=== PATIENT | male | born 1955 | race Caucasian/White ===

== ENCOUNTER 2016-09-27 00:11 | Emergency (ER) | payer OTHER | END 2016-09-27 08:47 | disposition home or self-care (01) | LOC: SED 00:11 | DX: F10.129 Alcohol abuse with intoxication, unspecified (principal); Y90.9 Presence of alcohol in blood, level not specified; F17.200 Nicotine dependence, unspecified, uncomplicated | CPT/HCPCS: 36415; 96365; 99284; J3411 ==

== ENCOUNTER 2016-11-25 17:01 | Emergency (ER) | payer OTHER ==
[~2016-11-25] VITALS: Ht 172.7 cm; Wt 81.6 kg
--- NOTE | ~2016-11-25 | CR172 ---
[facility] A Service of [facility] & [facility] RADIOLOGY TEXT RESULTS PATIENT: GARRY ROWE LOCATION: [place] : [birth year] UNIT #: [id number] AGE: [address]: Aliza Spence SEX: M ORDER DR: [id number] [facility] [address] [place], [place] [address] [id number] E MR#: [id number] Acc #: [id number] NAME: GARRY ROWE : 1955 SEX: M STUDY DATE/TIME: 11/25/2016 17:51 UNIT: [facility] ROOM: STUDY DESCRIPTION: CR Knee 3 Views Lt Attending Physician: Aliza Spence P.A.-C. Ordering Physician: Aliza Spence P.A.-C. Primary Care Physician: No Primary Care Physician MEDICAL IMAGING REPORT This report is preliminary unless electronic signature is present EXAM Left knee 3 views HISTORY Knee pain and swelling for 3 days. No injury. FINDINGS 3 views of the left knee demonstrate normal bone alignment. No fracture, joint space narrowing or effusion. [place] arterial calcifications. IMPRESSION No acute findings. Dictated by... Javier Henson M.D. THIS IS AN ELECTRONICALLY VERIFIED REPORT Javier Henson M.D. at 11/26/2016 11:17 PM DFPrabhu/leilani TD: 11/26/2016 08:44 JOB #: [id number] CC: No Primary Care Physician MEDICAL IMAGING REPORT Page 1 of 1 COPY
== END 2016-11-25 18:42 | disposition home or self-care (01) ==
LOC: CFTX 17:01 → CED 17:01 → CFTX 18:19
DX: S83.92XA Sprain of unspecified site of left knee, initial encounter (principal); I10 Essential (primary) hypertension; I25.2 Old myocardial infarction; F17.210 Nicotine dependence, cigarettes, uncomplicated; X58.XXXA Exposure to other specified factors, initial encounter; Y92.009 Unspecified place in unspecified non-institutional (private) residence as the place of occurrence of the external cause
CPT/HCPCS: 29505; 73562; 99283

== ENCOUNTER 2016-12-27 21:48 | Emergency (ER) | payer OTHER ==
[~2016-12-27] VITALS: Ht 172.7 cm; Wt 72.6 kg
--- NOTE | ~2016-12-27 | EKG ---
PATIENT: GARRY ROWE UNIT #: [id number] Ventricular Rate: 70 BPM Atrial Rate: 70 BPM P-R Interval: 170 ms QRS Duration: 148 ms Q-T Interval: 418 ms QTC Calculation(Bezet): 451 ms P [place]: -5 degrees Calculated R [place]: 66 degrees Calculated T [place]: 23 degrees Diagnosis Line: Normal sinus rhythm Diagnosis Line: Right bundle branch block Diagnosis Line: Abnormal ECG Diagnosis Line: No previous ECGs available Diagnosis Line: Confirmed by COREY LINARES MD ([id number]) on Diagnosis Line: 12/28/2016 11:37:29 AM INTERPRETING MD: VIJAY MAYERS
--- NOTE | ~2016-12-27 | CR72 ---
[facility] A Service of [facility] RADIOLOGY TEXT RESULTS PATIENT: GARRY ROWE LOCATION: [facility] : [birth year] UNIT #: [id number] AGE: [address]: Jw Marquez DO SEX: M ORDER DR: [id number] [facility] [address] [place], [place] [address] [id number] E MR#: [id number] Acc #: [id number] NAME: GARRY ROWE : 1955 SEX: M STUDY DATE/TIME: 12/27/2016 22:47 UNIT: [facility] ROOM: STUDY DESCRIPTION: CR Chest Single View Portable Attending Physician: Jw Marquez D.O. Ordering Physician: Jw Marquez D.O. Primary Care Physician: No Primary Care Physician MEDICAL IMAGING REPORT This report is preliminary unless electronic signature is present EXAM Portable chest, 12/27 at 22:47. INDICATIONS Chest pain for the last 4 days. FINDINGS AP portable chest is compared with 07/07/2016. Cardiac and mediastinal contours are normal. The lungs are clear. There is no pneumothorax. There is some atherosclerotic disease in the aorta. 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 IMPRESSION No active disease. Dictated by... Brandon Montero Jr., M.D. THIS IS AN ELECTRONICALLY VERIFIED REPORT Brandon Montero Jr., M.D. at 12/31/2016 7:12 AM DHRUV/sandy TD: 12/28/2016 09:21 JOB #: [id number] MEDICAL IMAGING REPORT Page 1 of 1 COPY
[2016-12-27 22:40] LABS: BASOPHIL% 0.7 % (0-2.5); EOSINOPHIL# 0.1 X10e3 (0-0.7); EOSINOPHIL% 3.1 % (0.0-7.0); HEMOGLOBIN 11.3 gm/dL (13.0-16.0); LYMPHOCYTE# 1.4 X10e3 (1.0-3.5); LYMPHOCYTE% 34.5 % (17.0-45.0); MEAN CELL VOLUME 86.1 FL (83-96); MEAN CORPUSCULAR HEMOGLOBIN 27.7 PG (28-34); MEAN CORPUSCULAR HGB CONC 32.2 g/dL (30-36); MEAN PLATELET VOLUME 8.2 FL (6.5-11.5); MONOCYTE# 0.5 X10e3 (0-1.0); MONOCYTE% 11.7 % (3.0-12.0); NEUTROPHIL# 2.1 X10e3 (1.5-7.1); PLATELET COUNT 171 X10e3 (140-420); RED BLOOD COUNT 4.07 X10e (3.90-5.60); RED CELL DISTRIBUTION WIDTH 18.4 % (11.0-15.5); WHITE BLOOD COUNT 4.2 X10e3 (4.0-10.5)
[2016-12-27 22:41] LABS: DIFF IND NO
[2016-12-27 22:50] LABS: POC - CKMB 20.4 ng/mL (0.0-7.9); POC - TROPONIN <0.05 ng/mL (<=0.05)
[2016-12-27 22:54] LABS: INR 1.1; PARTIAL THROMBOPLASTIN TIME 28.5 SECONDS (23.5-31.3); PROTHROMBIN TIME (PATIENT) 11.5 SECONDS (10.0-11.7)
[2016-12-27 23:05] LABS: ALBUMIN SERUM 3.7 g/dL (3.5-5.0); BILIRUBIN, DIRECT 0.2 mg/dL (0.0-0.2); BILIRUBIN,INDIRECT 0.5 mg/dL (0.0-0.9); BILIRUBIN,TOTAL 0.7 mg/dL (0.2-2.0); CALCIUM SERUM 8.5 mg/dL (8.4-10.2); CREATININE SERUM 0.7 mg/dL (0.6-1.4); GLOM FILT RATE Estimated 100.5 mL/min (>60); POTASSIUM 3.2 mmol/L (3.5-5.1)
[2016-12-28 00:21] LABS: POC - CKMB 18.6 ng/mL (0.0-7.9); POC - TROPONIN <0.05 ng/mL (<=0.05)
== END 2016-12-28 04:34 | disposition left against medical advice (07) ==
LOC: CED 21:48
PROVIDERS: Emergency Medicine
DX: R07.89 Other chest pain (principal); F10.129 Alcohol abuse with intoxication, unspecified; E78.5 Hyperlipidemia, unspecified; I10 Essential (primary) hypertension; F17.200 Nicotine dependence, unspecified, uncomplicated; Z88.0 Allergy status to penicillin
CPT/HCPCS: 36415; 71010; 80048; 80076; 82550; 82553; 84484; 85025; 85610; 85730; 93005; 96361; 96374; 96375; 99285; C9113; G0480; J2405